=== PATIENT | female | born 1950 | race Caucasian/White ===

== ENCOUNTER 2020-12-08 20:03 | Inpatient (IN) | payer MEDICARE, OTHER ==
[~2020-12-08] VITALS: Ht 162.6 cm; Wt 87.4 kg
[~2020-12-08 20:03] MED LIST: ELAVIL10 MG PO; TUMS 5001250 MG PO; TYLENOL 500MG500 MG PO
[2020-12-08] MEDS ORDERED: ASPIRIN 81M81 MG/TA2 PO (22:53)
[2020-12-08] MEDS ORDERED: KLOR-CON SPRIN10 MEQ PO (22:53)
[2020-12-08] MEDS ORDERED: NITROSTAT0.4 MG/TAB SL (22:55)
[2020-12-08 23:05] LABS: ARTERIAL BLD GAS O2 SATURATION 94.2 % (92-100); ARTERIAL BLD GAS TCO2 CT 21.8; ARTERIAL BLOOD GAS BASE EXCESS -1.4 (-2-2); ARTERIAL BLOOD GAS HCO3 20.9 meq/L (22-26); ARTERIAL BLOOD GAS PCO2 28.7 mmHg (35-45); ARTERIAL BLOOD GAS PO2 69.9 mmHg (80-100); ARTERIAL BLOOD GAS pH 7.48 (7.35-7.45)
[2020-12-08 23:23] VITALS: BP 179/85; PULSE 75; TEMP 98.6
--- NOTE | 2020-12-09 03:34 | NUR ---
PT ARRIVES TO MEDICAL FLOOR ROOM 306 VIA EMT AT APPROXIMAETLY 2215 VIA STRETCHER, PT TRANFERRED VIA BIPAP AND SWITCHED TO AIRVO 60L FIO2 81 PERCENT. PT A/OX4, ANXIOUS AND EAGER, ASSESMENT COMPLETE, MED REC COMPLETED BY VEGETABLE WASHER, PT ORIENTED TO FACILITY BY THIS NURSE, N/S INFUSING AT 75ML/HR TO LEFT HAND IV, ANTIBITIOCS ADMINISTERED ORDERED. PT EXPRESSES NO ADDITONAL NEEDS AT THIS TIME. CALL LIGHT WTIHIN REACH.
[2020-12-09 04:25] LABS: PH 7 (5-8); SQUAMOUS EPITHELIAL 0-2 /hpf; URINE APPEARANCE Clear; URINE BACTERIA None Seen /hpf; URINE BILIRUBIN Negative (NEGATIVE); URINE BLOOD Negative (NEGATIVE); URINE COLOR Yellow; URINE GLUCOSE 3+ (NEGATIVE); URINE KETONE Negative (NEGATIVE); URINE LEUKOCYTE ESTERASE Negative (NEGATIVE); URINE NITRATE Negative (NEGATIVE); URINE PROTEIN(semi-quant) 1+ (NEGATIVE); URINE RBC 0-2 /hpf; URINE UROBILINOGEN Negative (NEGATIVE); URINE WBC 0-2 /hpf
[2020-12-09 04:38] LABS: COLLECTION METHOD CLEAN CATCH
[2020-12-09 05:22] VITALS: PULSE 77; TEMP 98.4
[2020-12-09 07:59] VITALS: BP 163/69; PULSE 76; TEMP 98.3
[2020-12-09 10:43] VITALS: BP 177/86; PULSE 78
--- NOTE | 2020-12-09 12:04 | NUR ---
Patient is very agitated. This RN has done everything possible to please the patient but she remains upset. Patient is mad that she is not allowed to have a larger fan in her room. Patient feels staff is bothering her too much, but calls frequently. Patient was informed that her labs needed to be drawn before it can be decided if the patient would benefit from actemra
[2020-12-09 15:22] LABS: BASO % 0.2 % (0.0-2.0); GRAN # 5.2 (1.4-6.5); GRAN % 85.6 % (42.2-75.2); HEMATOCRIT 38.4 % (37.0-47.0); HEMOGLOBIN 13.3 g/dl (12.5-16.0); LYMPH # 0.5 (1.2-3.4); MEAN CELL VOLUME 88 fl (80.0-100.0); MEAN CORPUSCULAR HEMOGLOBIN 31 pg (27.0-31.0); MEAN CORPUSCULAR HGB CONC 35 g/dl (33.0-37.0); MEAN PLATELET VOLUME 10.3 fl (7.4-10.4); MONO # 0.3 (0.1-0.6); PLATELET COUNT 170 K/mm3 (130-400); RED BLOOD COUNT 4.35 M/mm3 (4.10-5.30); REDCELL DISTRIBUTION WIDTH-CV 13.8 % (11.5-14.5)
--- NOTE | 2020-12-09 15:24 | NUR ---
SORAIDA called patient's daughter Shreya to complete intake [phone]. Daughter states that patient lives in [place] with spouse Ruma [phone]. Karenther states that patient does not utilize and walker and is independent with ADL's. PCP is Dr. Neumann and pharmacy is [facility]. Daughter is unsure of documentation of DPOA-HC. Karenther provides that as far as she knows her mother's plan is to return home up on DC. SORAIDA will continue to follow. DC plan: Home
[2020-12-09 15:35] LABS: ALBUMIN 3.4 gm/dL (3.5-5.0); BILIRUBIN,TOTAL 0.8 mg/dL (0.0-1.0); CALCIUM 8.3 mg/dL (8.4-10.2); CREATININE, serum 0.4 (0.52-1.25); POTASSIUM 3.6 mmol/L (3.4-5.0); TOTAL PROTEIN 6.3 gm/dL (6.4-8.2)
--- NOTE | 2020-12-09 17:16 | NUR ---
Patient remains agitated. This nurse has spoken with the patient's , daughter, and PCP/DPOA. All have stated this is normal for her when she is anxious. Patient continues to refuse anything for anxiety as she has multiple allergies. Patient becomes very flustered when anyone enters the room. Requests that the hospitalist calls and speaks with all of the persons listed above. Patient is refusing this RN to administer any IV medications through the IV in her left hand. The IV flushes fine and just needs the dressing changed, but patient refuses even with explanation. This RN told the patient that a new IV will need to be started if the one in her hand is causing her that much pain. Patient agreed.
[2020-12-09 17:45] VITALS: BP 164/62; PULSE 70; TEMP 98.7
[2020-12-09 20:00] VITALS: BP 151/73; PULSE 72; TEMP 98.4
--- NOTE | 2020-12-09 23:01 | NUR ---
ALERT AND OX3. PT IV HAD GONA BAD AT SHIFT CHANGE. ASH ZAMORA STARTS NEW SITE TO LT FA. RT ARM RESTRICTIONS. AIRVO 60L/85%. PT ANIXOUS, THINKS SHE MISSED MEDS TODAY, EXPLAINED SHE DID NOT. SPECFICALLY LOVENOX, WHICH IS A AM MED AND WAS GIVEN. IV ANTIBOTIC AND ANTIVIRAL INFUSED. PT TALKING ALOT- RN ENC HER TO RELAX AND LET US TAKE CARE OF HER. OFFERED TO CALL DOCTOR FOR ANIEXTY MED SHE STATES SHE DOES NOT WANT TO TAKE ANYTHING FOR THAT SHE WILL TRY TO REST AND CALM DOWN. EXP THE IMPORTANCE OF HER DOING SO NEXT STEP WOULD BE BIPAP SHE IS MAX ON AIRVO. PT V/U. CALL LIGHT WI REACH. FREQ O2 SPOT CHECKS WILL BE DONE OVERNIGHT. PT V/U AND ALSO STATES IF CANT SLEEP WILL CALL RN. RESTING AT 2230 W EYES CLOSED, MONITORING.
[2020-12-10 01:23] VITALS: BP 148/71; PULSE 70; TEMP 97.8
[2020-12-10 02:58] LABS: ARTERIAL BLD GAS O2 SATURATION 86.6 % (92-100); ARTERIAL BLD GAS TCO2 CT 23.7; ARTERIAL BLOOD GAS BASE EXCESS -0.6 (-2-2); ARTERIAL BLOOD GAS HCO3 22.7 meq/L (22-26); ARTERIAL BLOOD GAS PCO2 33.2 mmHg (35-45); ARTERIAL BLOOD GAS pH 7.45 (7.35-7.45)
--- NOTE | 2020-12-10 03:00 | NUR ---
PT AWAKE AND CALLS OUT STATING SHE DOESNT FEEL GOOD. SHAKING. BLOOD SUGAR OBTAINED OF 217. BP WNL. PT SLEPT FOR A LITTLE BIT BUT THEN WOKE WAS IN PANIC MODE. SUGGESTED SHE TAKES SOMETHING TO HELP HER RELAX, WORRIED ABOUT NUMBERS, HER BP, BS. MAGDY CAMPBELL - NOTIFIED TRYING TYLENOL TO HELP HER RELAX.
--- NOTE | 2020-12-10 03:20 | NUR ---
ABG CRITICAL - PAO2 50. BIPAP INIATED PT AGREEABLE. DPOA ALIA CALLED AND UPDATED, GOOD W CURRENT PLAN. ENC PT TO WORK ON ANIEXTY. WILL CHECK TO SEE IF TYL WORKED IF NOT WILL ASK FOR HYDROXYZINE ALIA STATES PT DOES NOT DO WELL W UMUS.
[2020-12-10 04:21] VITALS: BP 155/79; PULSE 82; TEMP 97.6
[2020-12-10 06:29] LABS: ARTERIAL BLD GAS TCO2 CT 26.4; ARTERIAL BLOOD GAS BASE EXCESS 1.3 (-2-2); ARTERIAL BLOOD GAS HCO3 25.3 meq/L (22-26); ARTERIAL BLOOD GAS PCO2 37.9 mmHg (35-45); ARTERIAL BLOOD GAS PO2 91.2 mmHg (80-100); ARTERIAL BLOOD GAS pH 7.44 (7.35-7.45)
[2020-12-10 08:58] VITALS: BP 177/76; PULSE 71; TEMP 98.9
--- NOTE | 2020-12-10 10:30 | NUR ---
Leslie snyder for picc line placement
--- NOTE | 2020-12-10 11:10 | NUR ---
Dr. Barrera in to see patient.
[2020-12-10 11:49] VITALS: BP 164/74; PULSE 70; TEMP 98.6
[2020-12-10 12:57] LABS: HEMATOCRIT 37.3 % (37.0-47.0); HEMOGLOBIN 12.6 g/dl (12.5-16.0); MEAN CELL VOLUME 89 fl (80.0-100.0); MEAN CORPUSCULAR HEMOGLOBIN 30 pg (27.0-31.0); MEAN CORPUSCULAR HGB CONC 34 g/dl (33.0-37.0); MEAN PLATELET VOLUME 10.4 fl (7.4-10.4); PLATELET COUNT 208 K/mm3 (130-400); RED BLOOD COUNT 4.17 M/mm3 (4.10-5.30)
[2020-12-10 13:13] LABS: ALBUMIN 3.2 gm/dL (3.5-5.0); BILIRUBIN,TOTAL 0.7 mg/dL (0.0-1.0); C-REACTIVE PROTEIN 1.2 mg/dL (0.0-0.9); CALCIUM 8.2 mg/dL (8.4-10.2); CREATININE, serum 0.4 (0.52-1.25); POTASSIUM 3.7 mmol/L (3.4-5.0); TOTAL PROTEIN 6.1 gm/dL (6.4-8.2)
[2020-12-10 13:25] LABS: BAND 1 % (0-10); LYMPHOCYTE 5 % (20.0-51.0); NEUTROPHILS 85 % (42.0-75.2)
[2020-12-10 13:26] LABS: BURR CELLS 2+; PLATELET ESTIMATE NORMAL (NORMAL); POIKILOCYTOSIS 2+
[2020-12-10 16:04] VITALS: BP 152/65; PULSE 69; TEMP 98.4
[2020-12-10 17:37] LABS: ARTERIAL BLD GAS O2 SATURATION 94.9 % (92-100); ARTERIAL BLD GAS TCO2 CT 26.4; ARTERIAL BLOOD GAS HCO3 25.3 meq/L (22-26); ARTERIAL BLOOD GAS PCO2 35.6 mmHg (35-45); ARTERIAL BLOOD GAS PO2 72.9 mmHg (80-100); ARTERIAL BLOOD GAS pH 7.47 (7.35-7.45)
--- NOTE | 2020-12-10 19:02 | NUR ---
Patient doing well throughout the day. Remains on BIPAP. Educated patient on importance of using BIPAP. Patient repositions in bed independently. Denies pain or needs at this time. Will report off to vial gauger.
[2020-12-10 19:57] VITALS: BP 178/73; PULSE 81; TEMP 98.2
--- NOTE | 2020-12-10 23:35 | NUR ---
ALERT OX3. REMAINS ON BIPAP. PT CONT TO BE VERY ANIXOUS AND RESTLESS. PICC LINE TO LEFT UPPER ARM FLUSED W GOOD BLOOD RETURN. ANTIBOTICS PER ORDER. PM MED GIVEN BRIEFLY W SIP OF WATER. PT AGREEABLE TO TAKE ATIVAN TONIGHT TO HELP HER REST W BIPAP. PT SPOUSE UPDATED ON PT STATUS THIS EVENING. NEEDS MET CALL LIGHT WI REACH. FREQ ROUNDS FOR MONITORING MADE.
[2020-12-11] VITALS (7 sets, daily range): BP systolic 158–200; BP diastolic 66–85; PULSE 71–90; TEMP 96.8–98.8
[2020-12-11 05:28] LABS: ARTERIAL BLD GAS O2 SATURATION 92.4 % (92-100); ARTERIAL BLD GAS TCO2 CT 28.5; ARTERIAL BLOOD GAS BASE EXCESS 3.2 (-2-2); ARTERIAL BLOOD GAS HCO3 27.3 meq/L (22-26); ARTERIAL BLOOD GAS PCO2 39.8 mmHg (35-45); ARTERIAL BLOOD GAS PO2 66.2 mmHg (80-100); ARTERIAL BLOOD GAS pH 7.45 (7.35-7.45)
--- NOTE | 2020-12-11 05:47 | NUR ---
Rested most of the night without incident. Bipap continued overnight. Am abg drawn. Pt oral care given and am labs drawn per picc line. Needs met.
--- NOTE | 2020-12-11 07:20 | NUR ---
Report received from JIM Zazueta. This RN opened the pt.'s room door to check on the pt., pt. resting in bed w/ eyes closed. Call light in reach.
[2020-12-11 07:35] LABS: HEMATOCRIT 38.2 % (37.0-47.0); HEMOGLOBIN 12.6 g/dl (12.5-16.0); MEAN CELL VOLUME 93 fl (80.0-100.0); MEAN CORPUSCULAR HEMOGLOBIN 31 pg (27.0-31.0); MEAN CORPUSCULAR HGB CONC 33 g/dl (33.0-37.0); MEAN PLATELET VOLUME 10.2 fl (7.4-10.4); PLATELET COUNT 193 K/mm3 (130-400); RED BLOOD COUNT 4.13 M/mm3 (4.10-5.30); REDCELL DISTRIBUTION WIDTH-CV 13.9 % (11.5-14.5)
[2020-12-11 07:47] LABS: C-REACTIVE PROTEIN 1.1 mg/dL (0.0-0.9); CREATININE, serum 0.42 (0.52-1.25); POTASSIUM 3.9 mmol/L (3.4-5.0)
[2020-12-11 08:04] LABS: BAND 2 % (0-10); LYMPHOCYTE 14 % (20.0-51.0); NEUTROPHILS 76 % (42.0-75.2); PLATELET ESTIMATE NORMAL (NORMAL)
--- NOTE | 2020-12-11 11:30 | NUR ---
Pt. progressing w/ plan of care. Dr. Barrera in to see pt. this AM and he reports it is OK if pt. comes off the BIPAP for a short amount of time to eat/drink. Pt. was placed on the airvo for a short time and she tolerated it well. Pt. was able to work with therapy and move from the bed to the commode to void. All scheduled medications administered, as well as tylenol PRN for a headache. Pt. was instructed to prone by this RN but she would like to hold off at this time. RR remains elevated with the BIPAP on but pt. reports feeling comfortable and O2 sat WNL on 60% Fio2. Call light and belongings in reach.
--- NOTE | 2020-12-11 12:47 | NUR ---
Pt.'s BP elevated, see flowsheets. Dr. Fisher notified, new order obtained for hydralazine x1, med administered now.
--- NOTE | 2020-12-11 17:00 | NUR ---
Pt.'s BP elevated again this evening. Dr. Fisher notified, and requesting to monitor for now and report to the provider what the next BP is this evening. Pt. is progressing w/ plan of care. Pt. anxious and skeptical about medications at times throughout the day. Pt. calms down with reassurance. Pt. used the commode twice today with good output. Pt.'s DPOA and updated when they called today. Call light and belongings in reach.
[2020-12-12 00:55] VITALS: BP 184/81; PULSE 92; TEMP 98.7
--- NOTE | 2020-12-12 02:29 | NUR ---
PT BP ELEVATED, MEDICATION ADMINISTERED ORDERED. UPON F/U PT' SP REDUCED BY 10. PT STATES SHE FEELS CLAMMY AND SHAKY AFTER ADMINISTRATION. NURSE STAYED BY PT'S SIDE. UPON W/U PT'S TEMPERATURE WAS COOL. THIS NURSE RAISED THE TEMPERATURE AND PLACED A WARM BLANKET ON PT. NURSE WILL CONTINUE TO MONITOR. CALL LIGHT WITHIN REACH.
[2020-12-12 04:30] VITALS: BP 159/63; PULSE 79
--- NOTE | 2020-12-12 04:37 | NUR ---
UPON F/U PT'S TEMPERATURE WNL. PT DENIES S/S UPON F/U.
--- NOTE | 2020-12-12 06:21 | NUR ---
PT WORE BIPAP FOR 7-8 HOURS OVERNIGHT (03/18, 55% ) WITH 94-95 PERCENT SATURATIO AND PT CONTINUES TO WEAR NOW. PT UNABLE TO REST THROUGH OUT NIGHT. (GENERAL DISCOMFORT) BP DECREASED AFTER MEDICATION ADMINISTRATION. PT EXPRESSES NO ADDITIONAL NEEDS AT THIS TIME. CALL LIGHT WITHIN REACH.
[2020-12-12 08:33] VITALS: BP 171/66; PULSE 76; TEMP 98.1
[2020-12-12 10:24] LABS: HEMATOCRIT 37.8 % (37.0-47.0); HEMOGLOBIN 12.8 g/dl (12.5-16.0); MEAN CELL VOLUME 92 fl (80.0-100.0); MEAN CORPUSCULAR HEMOGLOBIN 31 pg (27.0-31.0); MEAN CORPUSCULAR HGB CONC 34 g/dl (33.0-37.0); MEAN PLATELET VOLUME 10.4 fl (7.4-10.4); PLATELET COUNT 224 K/mm3 (130-400); RED BLOOD COUNT 4.13 M/mm3 (4.10-5.30); REDCELL DISTRIBUTION WIDTH-CV 13.9 % (11.5-14.5)
[2020-12-12 10:33] LABS: CALCIUM 8.4 mg/dL (8.4-10.2); CREATININE, serum 0.47 (0.52-1.25); POTASSIUM 3.8 mmol/L (3.4-5.0)
[2020-12-12 10:56] LABS: BAND 7 % (0-10); LYMPHOCYTE 9 % (20.0-51.0); NEUTROPHILS 77 % (42.0-75.2); PLATELET ESTIMATE NORMAL (NORMAL)
[2020-12-12 12:50] VITALS: BP 157/72; PULSE 77; TEMP 98.2
[2020-12-12 17:40] VITALS: BP 173/77; PULSE 101; TEMP 99
--- NOTE | 2020-12-12 18:56 | NUR ---
Patient has done well today. Down to 45L on Airvo. Only complaint was hot flashes, only a low grade fever of 99.0 was present. Patient had this complaint all day. Patient's AC turned all the way down and cold wash cloth placed on forehead.
[2020-12-12 19:54] VITALS: BP 189/77; PULSE 78; TEMP 97.9
[2020-12-13] VITALS (7 sets, daily range): BP systolic 153–186; BP diastolic 62–75; PULSE 72–89; TEMP 98.2–98.8
--- NOTE | 2020-12-13 04:44 | NUR ---
PT NIGHT UNEVENTFUL. BP REMAINED ELEVATED.PT ASYMPTOMATIC. PT RELUCTANT TO MEDICATION ADMINISTRATION.THIS NURSE CONTINUED TO MONITOR VS. 02 AIRVO 45L FIO2 70.PT TOLERATED IT WELL. ALL NEEDS MET. CALL LIGHT WITHIN REACH.
[2020-12-13 07:20] LABS: EOS % 0.5 % (0-4.0); GRAN # 6.7 (1.4-6.5); GRAN % 81.3 % (42.2-75.2); HEMATOCRIT 38.5 % (37.0-47.0); HEMOGLOBIN 12.7 g/dl (12.5-16.0); LYMPH # 0.6 (1.2-3.4); LYMPH % 7.4 % (20.0-51.0); MEAN CELL VOLUME 92 fl (80.0-100.0); MEAN CORPUSCULAR HEMOGLOBIN 31 pg (27.0-31.0); MEAN CORPUSCULAR HGB CONC 33 g/dl (33.0-37.0); MEAN PLATELET VOLUME 10.5 fl (7.4-10.4); MONO # 0.8 (0.1-0.6); MONO % 9.5 % (1.7-9.3); PLATELET COUNT 237 K/mm3 (130-400); RED BLOOD COUNT 4.17 M/mm3 (4.10-5.30); REDCELL DISTRIBUTION WIDTH-CV 13.8 % (11.5-14.5)
[2020-12-13 07:23] LABS: CALCIUM 8.4 mg/dL (8.4-10.2); CREATININE, serum 0.48 (0.52-1.25)
--- NOTE | 2020-12-13 22:45 | NUR ---
ALERT AND OX4. PT VERY ANIXIOUS ABOUT EVERYTHING TO INCLUDE THE WEATHER OUTSIDE. NON-COMPLIENT COOPERATIVE. BS 304, STATES THATS NOT RIGHT SOMETHINGS IS BROKE TAKE IT AGAIN- 314 SECOND CHECK. HESITANT TO LET ME GIVE INSULIN STATES IT MAKES HE FEEL FUNNY. EXPLAINED TO HER THAT HE HIGH BLODD SUGARS ARE MORE THAN LIKLY MAKING HER FEEL BAD AND NOT THE INSULIN. BP HIGH. REFUSED TO ALLOW TO GIVE PRN IV BP MEDS. STATES WE WILL JUST WATCH IT ITS BEEN HIGHER BEFORE. EXPLAINED TO HER SHE IS AT RISK FOR STROKE W UNCONTROLLED BP, WANTS TO JUST MONITOR. CALL LIGHT WI REACH.
[2020-12-14 04:58] VITALS: BP 204/73; PULSE 89; TEMP 98.5
--- NOTE | 2020-12-14 05:00 | NUR ---
PT CALLED OUT CAUSE SHE DID NOT FEEL GOOD AND NEEDED TO VOID. BP CHECKED OF 202/79. PT FEELING NAUSEATED AND HAS HEADACHE. BS 194. EXPLAINED TO PT THAT SHE DIDNT FEEL WELL DUE TO UNTREATED BP SHE HAS REFUSED TO ALLOW TX. PT ASKED FOR ME TO REPEAT BP SHE DIDNT BELIEVE. IT WAS 204/73. AGAIN EXPLAINED TO PT THAT SHE IS AT RISK FOR STROKE AND OTHER HEALTH PROBLEMS IF LEFT UNTREATED, SHE STATES WE ARE MAKING HER SICKER AND SHE IS TIRED OF TAKING ALL OF THIS MEDICINE AND IN HER EYES W NO RESULTS. MAGDY CAMPBELL CALLED TO INFORM W NO ANSWER WILL TRY TO CALL BACK. PT ONLY AGREES TO TAKE TYL STATES IN THE PAST TYL BRINGS DOWN HER BP AT HOME. WANTED SALTINE CRACKER AND DIET SPRITE FOR NAUSEA. SUGGESTED TO PT TO TRY TO WORK ON ANIEXTY AND BE MORE COOPERATIVE W CARE BUT DOES NOT BELIEVE SHE IS ANIXOUS. MONITORING. W CARE.
[2020-12-14 08:45] LABS: HEMATOCRIT 38.3 % (37.0-47.0); HEMOGLOBIN 13.1 g/dl (12.5-16.0); MEAN CORPUSCULAR HEMOGLOBIN 30 pg (27.0-31.0); MEAN CORPUSCULAR HGB CONC 34 g/dl (33.0-37.0); MEAN PLATELET VOLUME 10.6 fl (7.4-10.4); PLATELET COUNT 235 K/mm3 (130-400); RED BLOOD COUNT 4.39 M/mm3 (4.10-5.30); REDCELL DISTRIBUTION WIDTH-CV 13.5 % (11.5-14.5)
[2020-12-14 08:47] LABS: CALCIUM 8.6 mg/dL (8.4-10.2); CREATININE, serum 0.49 (0.52-1.25); POTASSIUM 4.2 mmol/L (3.4-5.0)
[2020-12-14 08:52] LABS: MEAN CELL VOLUME 87 fl (80.0-100.0)
[2020-12-14 10:36] LABS: BAND 15 % (0-10); LYMPHOCYTE 5 % (20.0-51.0); METAMYELOCYTE 2 % (0-0); NEUTROPHILS 68 % (42.0-75.2)
[2020-12-14 10:39] LABS: PLATELET ESTIMATE NORMAL (NORMAL)
[2020-12-14 10:40] LABS: NUCLEATED RED BLOOD CELL 1 (0-6)
[2020-12-14 12:00] VITALS: BP 121/82; PULSE 82; TEMP 97.8
[2020-12-14 16:00] VITALS: BP 182/67; PULSE 93
[2020-12-14 20:00] VITALS: BP 187/77; PULSE 102; TEMP 98.3
--- NOTE | 2020-12-14 22:46 | NUR ---
ALERT OX4. DENIES SOA, CHEST PAIN OR DIZZY. BP REMAINS HIGH, PT REFUSED TX FOR THIS. HESITANT TO ALLOW ME TO TX BLOOD SUGAR BUT DID. BURNING IN STOMACH BUT WANTS NOTHING OTHER THAN DIET SPITE AND SALTINES FOR THIS. PM MEDS GIVEN. POC DISCUSSED. CALL LIGHT WI REACH.
[2020-12-15 00:33] VITALS: BP 155/70; PULSE 92; TEMP 97.3
[2020-12-15 04:45] VITALS: BP 154/72; PULSE 57; TEMP 97.8
--- NOTE | 2020-12-15 06:10 | NUR ---
PT RESTED THROUGH THE NIGHT WITHOUT INCIDENT. NEEDS MET.
[2020-12-15 08:19] LABS: HEMATOCRIT 38.8 % (37.0-47.0); HEMOGLOBIN 13.2 g/dl (12.5-16.0); MEAN CELL VOLUME 89 fl (80.0-100.0); MEAN CORPUSCULAR HEMOGLOBIN 30 pg (27.0-31.0); MEAN CORPUSCULAR HGB CONC 34 g/dl (33.0-37.0); MEAN PLATELET VOLUME 10.6 fl (7.4-10.4); PLATELET COUNT 191 K/mm3 (130-400); RED BLOOD COUNT 4.36 M/mm3 (4.10-5.30); REDCELL DISTRIBUTION WIDTH-CV 13.5 % (11.5-14.5)
[2020-12-15 08:34] LABS: CALCIUM 8.5 mg/dL (8.4-10.2); CREATININE, serum 0.47 (0.52-1.25); POTASSIUM 4.1 mmol/L (3.4-5.0)
[2020-12-15 08:47] VITALS: BP 153/78; PULSE 65; TEMP 97.6
--- NOTE | 2020-12-15 08:57 | NUR ---
Pt awake upon entry, no C/O pain at this time. Shift assessments complete, left Pt call light in reach, bed in lowest position. Assisted Pt to restroom.
[2020-12-15 09:28] LABS: BAND 1 % (0-10); LYMPHOCYTE 6 % (20.0-51.0); NEUTROPHILS 86 % (42.0-75.2); PLATELET ESTIMATE NORMAL (NORMAL)
[2020-12-15 12:30] VITALS: BP 154/70; PULSE 72; TEMP 98.2
[2020-12-15 17:53] VITALS: BP 174/79; PULSE 69; TEMP 98.5
[2020-12-15 20:53] VITALS: BP 186/68; PULSE 62; TEMP 98.4
[2020-12-16 00:33] VITALS: BP 155/62; PULSE 61; TEMP 98.4
[2020-12-16 04:10] VITALS: BP 153/66; PULSE 57; TEMP 97.6
--- NOTE | 2020-12-16 06:17 | NUR ---
Patient ambulating in room with steady gait, O2@5L per NC, no s/s of hypo/hyper glycemia noted, VS stable, will continue to monitor.
[2020-12-16 08:34] VITALS: BP 154/67; PULSE 68; TEMP 97.9
[2020-12-16 08:34] LABS: HEMATOCRIT 37.6 % (37.0-47.0); MEAN CELL VOLUME 89 fl (80.0-100.0); MEAN CORPUSCULAR HEMOGLOBIN 31 pg (27.0-31.0); MEAN CORPUSCULAR HGB CONC 35 g/dl (33.0-37.0); MEAN PLATELET VOLUME 11.1 fl (7.4-10.4); PLATELET COUNT 183 K/mm3 (130-400); RED BLOOD COUNT 4.23 M/mm3 (4.10-5.30); REDCELL DISTRIBUTION WIDTH-CV 13.7 % (11.5-14.5)
[2020-12-16 08:44] LABS: CALCIUM 8.4 mg/dL (8.4-10.2); CREATININE, serum 0.45 (0.52-1.25); POTASSIUM 4.3 mmol/L (3.4-5.0)
[2020-12-16 09:22] LABS: BAND 7 % (0-10); LYMPHOCYTE 12 % (20.0-51.0); METAMYELOCYTE 2 % (0-0); NEUTROPHILS 77 % (42.0-75.2)
[2020-12-16 09:23] LABS: PLATELET ESTIMATE NORMAL (NORMAL)
--- NOTE | 2020-12-16 09:24 | NUR ---
Pt awake upon entry, sitting up in the bed, talkative. No C/O pain at this time. Shift assessment complete, left Pt call light in reach, bed in lowest position.
[2020-12-16 12:20] VITALS: BP 152/66; PULSE 73; TEMP 98.3
[2020-12-16 17:08] VITALS: BP 145/57; PULSE 61; TEMP 97.5
--- NOTE | 2020-12-16 18:22 | NUR ---
Pt rested in the room today, no C/O pain throughout. Titrated Pt to 4.5 LPM NC. No other issues noted.
--- NOTE | 2020-12-16 18:24 | NUR ---
Pt rested in the room today, no C/O pain throughout. Pt titrated off O2, currently on room air. No C/O pain today. no other issues noted.
[2020-12-16 20:54] VITALS: BP 160/71; PULSE 69; TEMP 97.9
[2020-12-17 00:22] VITALS: BP 153/66; PULSE 62; TEMP 97.7
[2020-12-17 04:29] VITALS: BP 136/68; PULSE 67; TEMP 97.8
[2020-12-17 08:02] VITALS: BP 150/66; PULSE 71; TEMP 97.6
[2020-12-17 08:10] LABS: BASO % 0.1 % (0.0-2.0); EOS % 0.3 % (0-4.0); GRAN # 7.2 (1.4-6.5); HEMATOCRIT 40.4 % (37.0-47.0); HEMOGLOBIN 13.3 g/dl (12.5-16.0); LYMPH # 0.8 (1.2-3.4); LYMPH % 9.4 % (20.0-51.0); MEAN CELL VOLUME 92 fl (80.0-100.0); MEAN CORPUSCULAR HEMOGLOBIN 30 pg (27.0-31.0); MEAN CORPUSCULAR HGB CONC 33 g/dl (33.0-37.0); MEAN PLATELET VOLUME 11.5 fl (7.4-10.4); MONO # 0.8 (0.1-0.6); MONO % 9.1 % (1.7-9.3); PLATELET COUNT 159 K/mm3 (130-400); RED BLOOD COUNT 4.38 M/mm3 (4.10-5.30); REDCELL DISTRIBUTION WIDTH-CV 13.8 % (11.5-14.5)
[2020-12-17 08:31] LABS: CALCIUM 8.4 mg/dL (8.4-10.2); CREATININE, serum 0.52 (0.52-1.25); POTASSIUM 4.3 mmol/L (3.4-5.0)
--- NOTE | 2020-12-17 09:40 | NUR ---
Pt awake and in bed upon entry, no C/O pain this morning. Shift assessment complete, left Pt call light in reach, bed in lowest position.
[2020-12-17 12:20] VITALS: BP 152/69; PULSE 70; TEMP 98
[2020-12-17 16:02] VITALS: BP 138/67; PULSE 67; TEMP 98.1
[2020-12-17 20:43] VITALS: BP 147/63; PULSE 67; TEMP 98
--- NOTE | 2020-12-17 22:00 | NUR ---
Patint is resting sitting in bed. Alert and oriented x 4, VSS, tele in place. She is with 3 L O2 with nasal canula. No complains of nausea, vomiting or pain. PICC line flusshed, blud return get from purple port but not from red port. No further needs at this time. Call light within reach.
[2020-12-18 00:08] VITALS: BP 148/66; PULSE 65; TEMP 98.1
[2020-12-18 05:27] VITALS: BP 148/66; PULSE 64; TEMP 97.9
--- NOTE | 2020-12-18 06:14 | NUR ---
Patient has had a calm night. Continues with 3 L O2 NC. No further needs at this time. Shift report will be given to day nurse.
[2020-12-18 06:43] LABS: BASO % 0.2 % (0.0-2.0); EOS # 0.2 (0.0-0.7); EOS % 4.1 % (0-4.0); HEMATOCRIT 38.7 % (37.0-47.0); HEMOGLOBIN 12.7 g/dl (12.5-16.0); LYMPH # 1.3 (1.2-3.4); LYMPH % 25.2 % (20.0-51.0); MEAN CELL VOLUME 94 fl (80.0-100.0); MEAN CORPUSCULAR HEMOGLOBIN 31 pg (27.0-31.0); MEAN CORPUSCULAR HGB CONC 33 g/dl (33.0-37.0); MEAN PLATELET VOLUME 11.7 fl (7.4-10.4); MONO # 0.5 (0.1-0.6); MONO % 10.5 % (1.7-9.3); PLATELET COUNT 120 K/mm3 (130-400); RED BLOOD COUNT 4.12 M/mm3 (4.10-5.30); REDCELL DISTRIBUTION WIDTH-CV 14.3 % (11.5-14.5)
[2020-12-18 06:56] LABS: CALCIUM 8.2 mg/dL (8.4-10.2); CREATININE, serum 0.52 (0.52-1.25); POTASSIUM 4.4 mmol/L (3.4-5.0)
[2020-12-18 09:16] VITALS: BP 137/58; PULSE 73; TEMP 97.7
--- NOTE | 2020-12-18 09:28 | NUR ---
Pt awake and sitting up in the bed upon entry. No C/O pain at this time. Shift assessments complete. Left Pt call light in reach, bed in lowest position.
[2020-12-18 12:35] VITALS: BP 146/58; PULSE 71; TEMP 98.2
--- NOTE | 2020-12-18 13:49 | NUR ---
SW contacted the patient to follow up and review d/c plan. The patient states that she is feeling better and ready to get home. She confirms that she plans on returning home with her upon discharge. She states that if she needs oxygen, she would prefer to get it from [facility] in [place]. SW to continue to follow.
--- NOTE | 2020-12-18 15:23 | NUR ---
PT REQUIRING 3L AT REST AND 5 WITH AMBULATION
[2020-12-18 16:23] VITALS: BP 148/63; PULSE 72; TEMP 98
[2020-12-18 19:18] VITALS: BP 164/63; PULSE 75; TEMP 98.3
[2020-12-19 04:00] VITALS: BP 158/75; PULSE 62; TEMP 97.7
[2020-12-19 07:58] VITALS: BP 158/70; PULSE 71; TEMP 98.1
--- NOTE | 2020-12-19 09:05 | NUR ---
Patient reported no blood return from PICC. PICC flushed without difficulty with no blood return present. Reviewed this am chest x ray. Tip location noted. Sterile dressing change done with insertion site cleansed with chloraprep x 1, catheter pulled back 4 cm to 3 cm marking on catheter. still no blood return noted. skin prep, stat lock, chlorhexidine impregnated disk applied, and tegaderm applied. advised RN to obtain an order for cath-rosalind and instil. voiced understanding of instructions.
[2020-12-19] MEDS ORDERED: NORVASC 10MG10 MG PO (10:22)
[2020-12-19] MEDS ORDERED: PROAIR HFA0.09 MG/AC IH (10:22)
--- NOTE | 2020-12-19 11:29 | NUR ---
The hospitalist is ready to dc the patient today. RT notified SORAIDA that the patient qualified for 5 liters of oxygen. The hospitalist notified SW that the patient is also interested in home health for PT/OT now. SORAIDA met with the patient and her and reviewed the above. The patient confirms that she would like to get her oxygen from [facility]. The patient reports that she would be interested in home health. She states that she has a friend that is a PT at [facility] and she would like to use them. SORAIDA presented and read the IM form outloud to the patient. The patient verbalized understanding and gave SW approval to sign the form on her behalf. SORAIDA provided her with a copy. SORAIDA contacted and faxed the patient's oxygen order to Pema at [facility]. Pema reports that they will deliver the portable oxygen tank to the patient's room today. SORAIDA contacted and faxed a referral to [facility] at [facility]. Cydni reports that they are able to accept to accept the patient. The patient is to discharge back home with her today, 12/19, with home health services for senior care/PT/OT from [facility]. SORAIDA faxed the patient's dc order to [facility]. No additional needs at this time.
[2020-12-19 12:50] VITALS: BP 148/65; PULSE 72; TEMP 98
--- NOTE | 2020-12-19 13:53 | NUR ---
PICC to left upper arm removed by Leslie CARBALLO. Pt remained flat in bed for 30 minutes. Discharge teaching discussed w/pt and all questions answered. Pt escorted out via wheelchair w/all belongings.
== END 2020-12-19 14:20 | disposition home or self-care (01) | DRG 177 ==
LOC: MEDICAL 20:03
PROVIDERS: Nurse Practitioner Family; Student in an Organized Health Care Education/Training Program; ADMIT Internal Medicine
PROC: 02HV33Z Insertion of Infusion Device into Superior Vena Cava, Percutaneous Approach (ICD-10-PCS; 2020-12-10)
PROC: XW033E5 Introduction of Remdesivir Anti-infective into Peripheral Vein, Percutaneous Approach, New Technology Group 5 (ICD-10-PCS; principal; 2020-12-12)
DX: U07.1 COVID-19 (principal); J96.01 Acute respiratory failure with hypoxia; J12.82 Pneumonia due to coronavirus disease 2019; I10 Essential (primary) hypertension; E11.65 Type 2 diabetes mellitus with hyperglycemia; R74.01 Elevation of levels of liver transaminase levels; N61.1 Abscess of the breast and nipple; J45.909 Unspecified asthma, uncomplicated; Z79.82 Long term (current) use of aspirin; Z90.710 Acquired absence of both cervix and uterus; Z90.49 Acquired absence of other specified parts of digestive tract; Z85.3 Personal history of malignant neoplasm of breast
CPT/HCPCS: 99223-AI; 99232-AI; 99233-AI; 99239; C1751; J0360; J0696; J1100; J1650; J1815; J2060; J7030

== ENCOUNTER → 2021-10-21 | Outpatient (CLI) | payer MEDICARE, OTHER ==
[~2021-10-21] MED LIST changes: +ASPIRIN 81M81 MG/TA2 PO; +KLOR-CON SPRIN10 MEQ PO; +NITROSTAT0.4 MG/TAB SL; +NORVASC 10MG10 MG PO; +PROAIR HFA0.09 MG/AC IH
== END ==
LOC: DIA.ED 08:46
DX: E11.9 Type 2 diabetes mellitus without complications (principal)
CPT/HCPCS: G0108

== ENCOUNTER → 2021-11-18 | Outpatient (CLI) | payer MEDICARE, OTHER | LOC: DIA.ED 11-11 08:18 | DX: E11.9 Type 2 diabetes mellitus without complications (principal); Z79.84 Long term (current) use of oral hypoglycemic drugs; I10 Essential (primary) hypertension ==